=== PATIENT | female | born 2000 | race African-American/Black ===

== ENCOUNTER 2020-05-01 05:00 | Emergency (ER) | payer BC ==
--- OUTSIDE RECORDS SUMMARY | 2020-05-01 05:12 | XMS ---
:2000 Author Organization [facility] Support Name Relationship Address Phone UE Unavailable Unavailable Unavailable KIAH BENNETT MOTHER [address] [place] [address] Re-disclosure Warning The records that you are about to access may contain information from federally- assisted alcohol or drug abuse programs. If such information is present, then the following federally mandated warning applies: This information has been disclosed to you from records protected by federal confidentiality rules (42 CFR part 2). The federal rules prohibit you from making any further disclosure of this information unless further disclosure is expressly permitted by the written consent of the person to whom it pertains or as otherwise permitted by 42 CFR part 2. A general authorization for the release of medical or other information is NOT sufficient for this purpose. The Federal rules restrict any use of the information to criminally investigate or prosecute any alcohol or drug abuse patient.The records that you are about to access may contain highly sensitive health information, the redisclosure of which is protected by Article 27-F of the [facility] Public Health law. If you continue you may haveaccess to information: Regarding HIV / AIDS; Provided by facilities licensed or operated by the [facility] Office of Mental Health; or Provided by the [facility] Office for People With Developmental Disabilities. If such information is present, then the following [facility] mandated warning applies: This information has been disclosed to you from confidential records which are protected by state law. State law prohibits you from making any further disclosure of this information without the specific written consent of the person to whom it pertains, or as otherwise permitted by law. Any unauthorized further disclosure in violation of state law may result in a fine or longterm sentence or both. A general authorization for the release of medical or other information is NOT sufficient authorization for further disclosure. Insurance Providers Payer name Policy type / Policy ID Covered Covered green party's Policy Plan Coverage type green party ID relationship to [employer] PPO [id number] FA [id number]
[2020-05-01] MEDS ORDERED: SODIUM CHLORIDE 1,000 ML IV STA (05:19)
[2020-05-01 05:20] VITALS: BP 127/68; PULSE 94; TEMP 98.5; BMI 24.9
[2020-05-01] MEDS ORDERED: ACETAMINOPHEN 1000 MG/100 ML VIAL (NON FORMULARY) IVPB ONE (05:20)
[2020-05-01] MEDS ORDERED: FAMOTIDINE 20 MG/50 ML IVPB 20 MG/50 ML MG IVPB ONE (05:24)
[2020-05-01] MEDS ORDERED: ACETAMINOPHEN INJECTION 100 ML IVPB ONE (05:41)
--- NOTE | 2020-05-01 05:41 | PDOC ---
History of Present Illness - General Chief Complaint: Pain, Acute Stated Complaint: ABD PAIN Time Seen by Provider: 05/01/20 05:13 History Source: Patient - History of Present Illness Initial Comments: 05/01/20 05:41 20-year-old female complaining of epigastric pain radiating to the right upper and lower quadrant started prior to arrival. Patient reports that she woke up with pain. Denies fever/chills, nausea, vomiting, diarrhea. Patient reports that she had a normal bowel movement this morning. No past medical history no abdominal surgeries 05/01/20 06:12 Past History - Medical History Allergies/Adverse Reactions: Allergies Allergy/AdvReac Type Severity Reaction Status Date / Time No Known Allergies Allergy Verified 05/01/20 05:14 Home Medications: Ambulatory Orders NK [No Known Home Medication] 05/31/15 - Reproductive History Is Patient Now?: No - Immunization History Immunization Up to Date: Yes - Psycho-Social/Smoking History Smoking History: Never smoked Information on smoking cessation initiated: No - Substance Abuse Hx (Audit-C & DAST Scrn) How often the patient has a drink containing alcohol: Never Score: In Men: 4 or > Positive; In Women: 3 or > Positive: 0 Screen Result (Pos requires Nsg. Audit-10AR): Negative In the last yr the pt used illegal drug/Rx for NonMed reason: No Score: Yes response is considered Positive: 0 Screen Result (Positive result requires Nsg. DAST-10): Negative Review of Systems - Review of Systems Able to Perform ROS?: Yes Is the patient limited Polish proficient: No Constitutional: No: Symptoms Reported, See HPI, Chills, Diaphoresis, Fever, Loss of Appetite, Malaise, Night Sweats, Weakness, Weight Stable, Unintentional Wgt. Loss, Unexplained wgt Loss, Other ABD/GI: Yes: Abdominal cramping. No: Symptoms Reported, See HPI, Abdominal Distended, Abd. Pain w/ defecation, Blood Streaked Bowels, Constipated, Diarrhea, Difficulty Swallowing, Nausea, Poor Appetite, Poor Fluid Intake, Rectal Bleeding, Vomiting, Indigestion, Tarry Stools, Other : No: Symptoms Reported, See HPI, Burning, Dysuria, Discharge, Frequency, Flank Pain, Hematuria, Incontinence, Pain, Urgency, Testicular Mass, Testicular Swelling, Lesions, Testicular Pain, Other *Physical Exam - Vital Signs Last Vital Signs Temp Pulse Resp BP Pulse Ox 98.5 F 94 H 17 127/68 98 05/01/20 05:11 05/01/20 05:11 05/01/20 05:11 05/01/20 05:11 05/01/20 05:11 - Physical Exam General Appearance: Yes: Appropriately Dressed Respiratory/Chest: positive: Lungs Clear, Normal Breath Sounds Gastrointestinal/Abdominal: positive: Normal Bowel Sounds, Tender (epigastroc, RUQ, RLQ area tenderness) Musculoskeletal: positive: Normal Inspection. negative: CVA Tenderness Extremity: positive: Normal Capillary Refill, Normal Inspection, Normal Range of Motion Integumentary: positive: Normal Color, Dry, Warm Neurologic: positive: Fully Oriented, Alert, Normal Mood/Affect ED Treatment Course - LABORATORY CBC & Chemistry Diagram: 05/01/20 05:53 05/01/20 05:53 ED Progress Note - Progress Note Progress Note: 05/01/20 05:44 A: abdominal pain P: labs IVF tylenol pepcid reevaluate. may need imaging ct vs. US patient signed out to [facility] Discharge - Discharge Information Problems reviewed: Yes Clinical Impression/Diagnosis: Abdominal pain Qualifiers: Abdominal location: unspecified location Qualified Code(s): R10.9 - Unspecified abdominal pain Condition: Improved Disposition: HOME - Follow up/Referral - Patient Discharge Instructions Patient Printed Discharge Instructions: DI for Abdominal Pain-Adult Additional Instructions: The cause of your abdominal pain is unclear at this time. Your labs and urine were unremarkable. Your ultrasound shows a simple cyst in your left ovary We also did a CAT scan to rule out an appendicitis but CAT scan was unable to visualize your appendix in general. But given your benign exam upon discharge, we had an extensive conversation with you informing you that though appendicitis is unlikely that you need to return immediately should symptoms recur - Post Discharge Activity Work/Back to School Note: Back to Work
[2020-05-01 06:14] LABS: EOS % 2.1 % (0-4.5); HEMATOCRIT 39.6 % (32.4-45.2); HEMOGLOBIN 13.2 GM/dL (10.7-15.3); LYMPH % 52.3 % (8-40); MCH 28.4 pg (25.7-33.7); MCHC 33.3 g/dl (32.0-36.0); MEAN CELL VOLUME 85.3 fl (80-96); MEAN PLT VOLUME 8.6 fl (7.5-11.1); NEUT % 34.6 % (42.8-82.8); PLATELET COUNT 265 K/MM3 (134-434); RBC 4.64 M/mm3 (3.60-5.2); RDW 13.5 % (11.6-15.6); WHITE BLOOD COUNT 3.8 K/mm3 (4.0-10.0)
[2020-05-01 06:23] LABS: HCG,QUALITATIVE URINE Negative
[2020-05-01 06:24] LABS: EPI CELLS 21 /uL (0-25.1); HYALINE CASTS 6 /uL (0-3.1); PH,URINE 5.5 (5.0-8.0); URINE APPEARANCE CLEAR; URINE BACTERIA 288 /uL (0-1359); URINE BILIRUBIN NEGATIVE (NEGATIVE); URINE COLOR DK YELLOW; URINE GLUCOSE (UA) NEGATIVE (NEGATIVE); URINE KETONE 1+ (NEGATIVE); URINE LEUK ESTERASE 1+ (NEGATIVE); URINE NITRITE NEGATIVE (NEGATIVE); URINE PROTEIN TRACE (NEGATIVE); URINE RBC 12 /uL (0-23.9); URINE WBC 172 /uL (0-25.8)
[2020-05-01 06:38] LABS: ALBUMIN 3.8 g/dl (3.4-5.0); BILIRUBIN,TOTAL 0.6 mg/dL (0.2-1); CALCIUM 8.8 mg/dL (8.5-10.1); CREATININE 0.7 mg/dL (0.55-1.3); POTASSIUM 3.9 mmol/L (3.5-5.1); TOT PROT 8.2 g/dl (6.4-8.2)
--- NOTE | 2020-05-01 07:39 | PDOC ---
*Physical Exam - Vital Signs Last Vital Signs Temp Pulse Resp BP Pulse Ox 98.5 F 94 H 17 127/68 98 05/01/20 05:11 05/01/20 05:11 05/01/20 05:11 05/01/20 05:11 05/01/20 05:11 - Physical Exam 05/01/20 07:38 Pt mostly somnolent in ED General Appearance: Yes: Appropriately Dressed. No: Apparent Distress HEENT: positive: Normal Voice Neck: positive: Supple Respiratory/Chest: negative: Respiratory Distress Female Pelvic Exam: positive: normal external exam, cervical os closed, normal adnexa, discharge (copious amount of thin, light yellow vag discharge, no odor detected). negative: CMT, lesions, adnexal tenderness Gastrointestinal/Abdominal: positive: Normal Bowel Sounds, Tender, Soft. negative: Distended, Guarding, Rebound Musculoskeletal: negative: CVA Tenderness Integumentary: positive: Dry, Warm Neurologic: positive: Fully Oriented, Alert, Normal Mood/Affect <Kezia Escobar - Last Filed: 05/01/20 13:09> - Vital Signs Last Vital Signs Temp Pulse Resp BP Pulse Ox 98.5 F 94 H 17 127/68 98 05/01/20 05:11 05/01/20 05:11 05/01/20 05:11 05/01/20 05:11 05/01/20 05:11 <Helen Stevenson - Last Filed: 05/07/20 09:05> ED Treatment Course - LABORATORY CBC & Chemistry Diagram: 05/01/20 05:53 05/01/20 05:53 - ADDITIONAL ORDERS Additional order review: Laboratory Results 05/01/20 05/01/20 05:53 05:53 Sodium 140 Potassium 3.9 Chloride 108 H Carbon Dioxide 26 Anion Gap 5 L BUN 8.0 Creatinine 0.7 Est GFR (CKD-EPI)AfAm 144.56 Est GFR (CKD-EPI)NonAf 124.72 Random Glucose 92 Calcium 8.8 Total Bilirubin 0.6 AST 15 ALT 13 Alkaline Phosphatase 88 Total Protein 8.2 Albumin 3.8 Urine Color Dk yellow Urine Appearance Clear Urine pH 5.5 Ur Specific [place] 1.035 Urine Protein Trace Urine Glucose (UA) Negative Urine Ketones 1+ H Urine Blood Negative Urine Nitrite Negative Urine Bilirubin Negative Urine Urobilinogen 1.0 Ur Leukocyte Esterase 1+ H Urine WBC (Auto) 172 Urine RBC (Auto) 12 Urine Casts (Auto) 6 U Epithel Cells (Auto) 21 Urine Bacteria (Auto) 288 Urine HCG, Qual Negative 05/01/20 05:53 RBC 4.64 MCV 85.3 MCHC 33.3 RDW 13.5 MPV 8.6 Neutrophils % 34.6 L D Lymphocytes % 52.3 H Monocytes % 10.0 Eosinophils % 2.1 D Basophils % 1.0 - RADIOLOGY Radiology Studies Ordered: Category Date Time Status ABDOMEN & PELVIS CT WITH CONTR [CT] Stat CT Scan 05/01/20 07:23 Ordered - Medications Given in the ED: ED Medications Discontinued Medications Generic Name Dose Route Start Last Admin Trade Name Freq PRN Reason Stop Dose Admin Acetaminophen 1,000 mg 05/01/20 05:20 05/01/20 06:03 Ofirmev Injection - IVPB 05/01/20 05:21 1,000 mg ONCE ONE Administration Sodium Chloride 1,000 mls @ 1,000 mls/hr 05/01/20 05:19 05/01/20 06:03 Normal Saline - IV 05/01/20 06:18 1,000 mls/hr ASDIR STA Administration Famotidine/Sodium Chloride 20 mg in 50 mls @ 100 mls/hr 05/01/20 05:24 05/01/20 06:03 Pepcid 20 Mg Premixed Ivpb - IVPB 05/01/20 05:53 100 mls/hr ONCE ONE Administration <Kezia Escobar - Last Filed: 05/01/20 13:09> - LABORATORY CBC & Chemistry Diagram: 05/01/20 05:53 05/01/20 05:53 - ADDITIONAL ORDERS Additional order review: 05/01/20 10:19 Urine Culture - Final Urine - Urine Clean Catch Proteus Species 05/01/20 05:53 RBC 4.64 MCV 85.3 MCHC 33.3 RDW 13.5 MPV 8.6 Neutrophils % 34.6 L D Lymphocytes % 52.3 H Monocytes % 10.0 Eosinophils % 2.1 D Basophils % 1.0 - Medications Given in the ED: ED Medications Discontinued Medications Generic Name Dose Route Start Last Admin Trade Name Freq PRN Reason Stop Dose Admin Acetaminophen 1,000 mg 05/01/20 05:20 05/01/20 06:03 Ofirmev Injection - IVPB 05/01/20 05:21 1,000 mg ONCE ONE Administration Sodium Chloride 1,000 mls @ 1,000 mls/hr 05/01/20 05:19 05/01/20 06:03 Normal Saline - IV 05/01/20 06:18 1,000 mls/hr ASDIR STA Administration Famotidine/Sodium Chloride 20 mg in 50 mls @ 100 mls/hr 05/01/20 05:24 05/01/20 06:03 Pepcid 20 Mg Premixed Ivpb - IVPB 05/01/20 05:53 100 mls/hr ONCE ONE Administration <Helen Stevenson - Last Filed: 05/07/20 09:05> Medical Decision Making - Medical Decision Making 05/01/20 07:36 Patient signed out to me at 7 AM by NARCISA Perez 20 yo F, no sig hx, here w/ crampy lower abd pain since 4am today. No change in BM, dysuria, vaginal discharge, n/v/f/c. No h/o similar pain. menses due in ~2 weeks. No new sexual partner or h/o STD. On reassessment now, patient continues to complain of pain. Received pepcid earlier. Has minimal tenderness to right and mid lower abdomen on my exam. Labs reviewed and unremarkable. Will send for CT at this time, though low clinical suspicion. Pt declines pain meds 05/01/20 09:27 Patient s/p CT which was read as unable to clearly identify appendix secondary to pelvic fluid, also ? b/l ovarian cysts. On re-examination, patient states pain has since resolved w/ benign abd and no ttp over [place] on rpt abd exam. Pelvic exam was performed which was remarkable for copious amount of thin, light yellow vaginal discharge, no adnexal tenderness or CMT elicited. PID unlikely. Will get ultrasound at this time for better characterization of CT findings 05/01/20 12:43 Ultrasound largely unremarkable and shows simple cyst to left ovary, no free fluid or evidence of torsion. On reassessment, patient continues to appear well and in no apparent distress, mostly texting and talking on her phone. Repeat abdominal exam benign and patient reports no pain at this time. Very low suspicion for appy at this time but given CT report, had lengthy discussion with patient's informing patient that though appendicitis unlikely at this time that she should return if pain recur and or worsen. Patient verbalized understanding of this <Kezia Escobar - Last Filed: 05/01/20 13:09> - Medical Decision Making I reviewed the case with the mid-level practitioner and agree with the mid-level practitioner's assessment, diagnosis and disposition. <Helen Stevenson - Last Filed: 05/07/20 09:05> Discharge - Discharge Information Problems reviewed: Yes <Kezia Escobar - Last Filed: 05/01/20 13:09> <Helen Stevenson - Last Filed: 05/07/20 09:05> - Discharge Information Clinical Impression/Diagnosis: Abdominal pain Qualifiers: Abdominal location: unspecified location Qualified Code(s): R10.9 - Unspecified abdominal pain Condition: Improved Disposition: HOME - Patient Discharge Instructions Patient Printed Discharge Instructions: DI for Abdominal Pain-Adult Additional Instructions: The cause of your abdominal pain is unclear at this time. Your labs and urine were unremarkable. Your ultrasound shows a simple cyst in your left ovary We also did a CAT scan to rule out an appendicitis but CAT scan was unable to visualize your appendix in general. But given your benign exam upon discharge, we had an extensive conversation with you informing you that though appendicitis is unlikely that you need to return immediately should symptoms recur - Post Discharge Activity Work/Back to School Note: Back to Work
== END 2020-05-01 12:55 | disposition home or self-care (01) ==
LOC: JER 05:00
PROC: 3E0333Z Introduction of Anti-inflammatory into Peripheral Vein, Percutaneous Approach (ICD-10-PCS; principal; 2020-05-01)
PROC: 3E033GC Introduction of Other Therapeutic Substance into Peripheral Vein, Percutaneous Approach (ICD-10-PCS; 2020-05-01)
PROC: 3E0337Z Introduction of Electrolytic and Water Balance Substance into Peripheral Vein, Percutaneous Approach (ICD-10-PCS; 2020-05-01)
DX: R10.9 Unspecified abdominal pain (principal)
CPT/HCPCS: 36415; 74177-TC; 76830-TC; 76856-TC; 80053; 81003; 84703; 85025; 87086; 87491; 87591; 99285-25; J0131; Q9967